=== PATIENT | female | born 1965 | race African-American/Black ===

== ENCOUNTER 2017-03-23 22:46 | Emergency (ER) | payer OTHER ==
[~2017-03-23] VITALS: Ht 157.5 cm; Wt 63.5 kg
--- NOTE | 2017-03-23 23:06 | PHYS DOC ---
Adult General Chief Complaint Chief Complaint: ABDOMINAL PAIN HPI HPI Patient is a 52 year old F who presents with left lower quadrant abdominal pain and shortness of breath for the past week. Patient states that the pain is getting worse which is a what lead her to the emergency room tonight. Patient denies any fevers. Patient is a heavy smoker. Patient denies any nausea/vomiting /diarrhea. Patient denies any dysuria. Patient complains of upper of cough and worsening shortness of breath. Review of Systems Review of Systems GEN: Denies fevers, chills, sweats HEENT: Denies blurred vision, sore throat CV: Denies chest pain RESP: Shortness of breath GI: Left lower quadrant abdominal pain NEURO: Denies confusion, dizziness MSK: Denies weakness, joint pain/swelling All other systems were reviewed and found to be within normal limits, except as documented in this note. Current Medications Current Medications Current Medications Medications (Trade) Dose Ordered Sig/Daryn Start Time Stop Time Status Last Admin Dose Admin Ceftriaxone Sodium 50 ml @ 100 mls/hr 1X ONCE 03/24/17 01:45 03/24/17 02:14 03/24/17 01:44 100 MLS/HR Info (Do NOT chart on this entry -- for MONITORING) 1 each PRN DAILY PRN 03/24/17 00:15 03/26/17 00:14 Iohexol (Omnipaque 300 Mg/ml) 75 ml 1X ONCE 03/24/17 00:15 03/24/17 00:16 DC 03/24/17 00:24 75 ML Potassium Chloride (Klor-Con) 40 meq 1X ONCE 03/24/17 00:00 03/24/17 00:01 DC 03/24/17 00:04 40 MEQ Sodium Chloride 1,000 ml @ 1,000 mls/hr 1X ONCE 03/23/17 23:30 03/24/17 00:29 DC 03/23/17 23:30 1,000 MLS/HR Allergies Allergies Allergies Coded Allergies Type Severity Reaction Last Updated Verified No Known Drug Allergies 03/23/17 No Physical Exam Physical Exam GEN.: Mild distress. Alert and oriented. HEENT: Head is normocephalic, atraumatic NECK: Supple. LUNGS: Crackles to the left lower lung field. HEART: RRR, S1, S2 present. Peripheral pulses intact ABDOMEN: Soft, mild left lower quadrant tenderness palpation, no rebound tenderness, no guarding, no abdominal distention. Positive bowel sounds. EXTREMITIES: Without any cyanosis. NEUROLOGIC: Normal speech, normal tone PSYCHIATRIC: Normal affect, normal mood. SKIN: No ulcerations Current Patient Data Vital Signs Vital Signs Date Time Temp Pulse Resp B/P (MAP) Pulse Ox O2 Delivery O2 Flow Rate FiO2 03/24/17 01:02 92 22 127/74 (91) 96 Room Air 03/23/17 23:00 98.0 98.0 Lab Values Laboratory Tests Test 03/23/17 22:55 03/23/17 23:15 Urine Collection Type Unknown Urine Color Yellow Urine Clarity Clear Urine pH 6.0 Urine Specific [place] 1.020 Urine Protein Negative mg/dL (NEG-TRACE) Urine Glucose (UA) Negative mg/dL (NEG) Urine Ketones (Stick) Negative mg/dL (NEG) Urine Blood Negative (NEG) Urine Nitrite Negative (NEG) Urine Bilirubin Negative (NEG) Urine Urobilinogen Dipstick 1.0 mg/dL (0.2 mg/dL) Urine Leukocyte Esterase Negative (NEG) Urine RBC 0 /HPF (0-2) Urine WBC Occ /HPF (0-4) Urine Squamous Epithelial Cells Many /LPF Urine Bacteria Few /HPF (0-FEW) Urine Hyaline Casts Occasional /HPF Urine Mucus Slight /LPF White Blood Count 9.9 x10^3/uL (4.0-11.0) Red Blood Count 3.36 x10^6/uL (3.50-5.40) L Hemoglobin 11.2 g/dL (12.0-15.5) L Hematocrit 33.5 % (36.0-47.0) L Mean Corpuscular Volume 100 fL (79-100) Mean Corpuscular Hemoglobin 33 pg (25-35) Mean Corpuscular Hemoglobin Concent 34 g/dL (31-37) Red Cell Distribution Width 14.6 % (11.5-14.5) H Platelet Count 444 x10^3/uL (140-400) H Neutrophils (%) (Auto) 39 % (31-73) Lymphocytes (%) (Auto) 51 % (24-48) H Monocytes (%) (Auto) 7 % (0-9) Eosinophils (%) (Auto) 2 % (0-3) Basophils (%) (Auto) 1 % (0-3) Neutrophils # (Auto) 3.9 x10^3uL (1.8-7.7) Lymphocytes # (Auto) 5.0 x10^3/uL (1.0-4.8) H Monocytes # (Auto) 0.7 x10^3/uL (0.0-1.1) Eosinophils # (Auto) 0.2 x10^3/uL (0.0-0.7) Basophils # (Auto) 0.1 x10^3/uL (0.0-0.2) Segmented Neutrophils % 37 % (35-66) Band Neutrophils % 1 % (0-9) Lymphocytes % 56 % (24-48) H Monocytes % 1 % (0-10) Eosinophils % 3 % (0-5) Basophils % 2 % (0-3) Toxic Granulation Slight Platelet Estimate Increased (ADEQUATE) Sodium Level 142 mmol/L (136-145) Potassium Level 2.9 mmol/L (3.5-5.1) *L Chloride Level 106 mmol/L (98-107) Carbon Dioxide Level 27 mmol/L (21-32) Anion Gap 9 (6-14) Blood Urea Nitrogen 13 mg/dL (7-20) Creatinine 0.9 mg/dL (0.6-1.0) Estimated GFR (Cockcroft-Gault) 65.2 BUN/Creatinine Ratio 14 (6-20) Glucose Level 104 mg/dL (70-99) H Lactic Acid Level 1.2 mmol/L (0.4-2.0) Calcium Level 8.8 mg/dL (8.5-10.1) Total Bilirubin 0.3 mg/dL (0.2-1.0) Aspartate Amino Transferase (AST) 88 U/L (15-37) H Alanine Aminotransferase (ALT) 61 U/L (14-59) H Alkaline Phosphatase 88 U/L (46-116) Troponin I Quantitative < 0.017 ng/mL (0.000-0.055) Total Protein 8.6 g/dL (6.4-8.2) H Albumin 3.0 g/dL (3.4-5.0) L Albumin/Globulin Ratio 0.5 (1.0-1.7) L Lipase 275 U/L (73-393) Ethyl Alcohol Level 256 mg/dL (0-10) H Laboratory Tests 03/23/17 23:15 Laboratory Tests 03/23/17 23:15 EKG EKG 2349: EKG shows normal sinus rhythm rate of 97 no STEMI[] Radiology/Procedures Radiology/Procedures CT scan abdomen and pelvis: IMPRESSION: Patchy infiltrates in the right lower lobe. Heterogeneous uterus with calcifications suggesting fibroids. No other focal abnormalities identified in the abdomen or pelvis. [] Course & Med Decision Making Course & Med Decision Making Pertinent Labs and Imaging studies reviewed. (See chart for details) ED course: Patient was seen and examined emergency room abdominal workup was ordered along with a CT scan abdomen pelvis, alcohol level Patient was dated on her alcohol level in which she admitted to drinking and also updated on her low potassium level and would give her oral potassium here the emergency room Updated patient on CT findings and the plan to discharge her home with oral antibiotics since she's having no signs and symptoms of sepsis or acute hypoxia from the pneumonia. Patient is comfortable being discharged home. Explained to the patient he would treat her for the hypokalemia with oral potassium and recommended short-term follow-up with PCP in 3-4 days have her potassium levels rechecked. MDM: After reviewing the chart, CC/HPI/PMH, physical exam, [lab results], [ radiological results], I do not believe the patient has intra-abdominal emergency or severe bacterial infection warranting further workup and/or admission at this time. I believe the patient is stable to be discharged home with oral antibiotics for treatment of her pneumonia. Patient had no EKG changes from her hypokalemia therefore is reasonable to give her oral potassium replacement and have her follow-up with PCP in 3-4 days to have it rechecked. Patient is stable for discharge. Recommended the patient to stop drinking. Additional verbal discharge instructions were provided to the patient and that if symptoms get worse or any new symptoms arise that are worrisome to the patient she is to return to the emergency room immediately [] Dragon Disclaimer Dragon Disclaimer This electronic medical record was generated, in whole or in part, using a voice recognition dictation system. Departure Departure Impression: Primary Impression: Pneumonia Additional Impressions: Hypokalemia Alcohol abuse Disposition: 01 HOME, SELF-CARE Condition: IMPROVED Patient Instructions: Alcohol Problems, Hypokalemia-Brief, Pneumonia, Adult Additional Instructions: Please follow-up with your family physician in the next one to 2 days and return if symptoms increase Scripts Potassium Chloride (POTASSIUM CHLORIDE) 20 Meq Tablet.er 20 MEQ PO DAILY for 5 Days, #5 TAB.SR Prov: WOOD PAZ DO 03/24/17 Azithromycin (ZITHROMAX) 250 Mg Tablet 1 PKG PO UD, #6 TAB Prov: WOOD PAZ DO 03/24/17 Problem Qualifiers WOOD PAZ DO Mar 23, 2017 23:06
[2017-03-23 23:09] LABS: BILIRUBIN,URINE NEGATIVE (NEG); GLUCOSE,URINE NEGATIVE (NEG); NITRITE,URINE NEGATIVE (NEG); PROTEIN,URINE NEGATIVE (NEG-TRACE)
[2017-03-23 23:20] LABS: RBC,URINE 0 /HPF (0-2); WBC,URINE OCC /HPF (0-4)
[2017-03-23 23:21] LABS: BACTERIA,URINE FEW /HPF (0-FEW); SQUAMOUS EPITHELIAL CELL,UR MANY /LPF
[2017-03-23 23:28] LABS: BASO # 0.1 x10^3/uL (0.0-0.2); BASO % 1 % (0-3); EOS % 2 % (0-3); HEMATOCRIT 33.5 % (36.0-47.0); HEMOGLOBIN 11.2 g/dL (12.0-15.5); LYMPH % 51 % (24-48); MEAN CORPUSCULAR HEMOGLOBIN 33 pg (25-35); MEAN CORPUSCULAR HGB CONC 34 g/dL (31-37); MEAN CORPUSCULAR VOLUME 100 fL (79-100); MONO % 7 % (0-9); NEUT % 39 % (31-73); PLATELET COUNT 444 x10^3/uL (140-400); RED BLOOD COUNT 3.36 x10^6/uL (3.50-5.40); RED CELL DISTRIBUTION WIDTH 14.6 % (11.5-14.5); WHITE BLOOD COUNT 9.9 x10^3/uL (4.0-11.0)
[2017-03-23] MEDS ORDERED: IV NORMAL SALINE 1000ML BAG 1,000 ML IV ONE (23:30)
[2017-03-23 23:47] LABS: ALBUMIN/GLOBULIN RATIO 0.5 (1.0-1.7); CALCIUM 8.8 mg/dL (8.5-10.1); CREATININE 0.9 mg/dL (0.6-1.0); GFR 65.2; TOTAL BILIRUBIN 0.3 mg/dL (0.2-1.0); TOTAL PROTEIN 8.6 g/dL (6.4-8.2)
[2017-03-23 23:52] LABS: % BASOS 2 % (0-3); % EOS 3 % (0-5)
[2017-03-23 23:54] LABS: PLT ESTIMATE INCREASED (ADEQUATE); POTASSIUM 2.9 mmol/L (3.5-5.1); TOXIC GRANULATION SLIGHT
[2017-03-24] MEDS ORDERED: POTASSIUM CHLORIDE 20 MEQ TABLET.ER. PO ONE
[2017-03-24] MEDS ORDERED: IOHEXOL 300 MG/ML 100ML VIAL. IV ONE (00:15)
[2017-03-24] MEDS ORDERED: CONTRAST GIVEN MC PRN (00:15)
[2017-03-24 01:02] VITALS: BP 127/74
--- NOTE | 2017-03-24 01:09 | RAD ---
CT abdomen and pelvis with contrast: Reason for examination: Left lower quadrant abdominal pain. Helical images were obtained through the abdomen pelvis with intravenous administration of 75 cc Omnipaque 300. Reconstruction was performed in sagittal and coronal planes. Exposure: One or more of the following individualized dose reduction techniques were utilized for this examination: 1. Automated exposure control 2. Adjustment of the mA and/or kV according to patient size 3. Use of iterative reconstruction technique. The lung bases show patchy infiltrates in the right lower lung field. No pleural effusions are seen. The heart size is normal with no pericardial effusion. No abnormality seen at the liver, gallbladder, spleen, adrenal glands or pancreas. The kidneys show no renal masses, renal calculi, hydronephrosis or evidence of obstructive uropathy. The abdominal aorta and inferior vena cava show no abnormalities. No abnormality seen at the appendix. There is no evidence of diverticulosis or diverticulitis. No abnormality seen at the bladder. Uterus shows heterogeneous density and calcification consistent with fibroids. No adnexal masses or free fluid are seen. No acute bony abnormalities are evident. IMPRESSION: Patchy infiltrates in the right lower lobe. Heterogeneous uterus with calcifications suggesting fibroids. No other focal abnormalities identified in the abdomen or pelvis. Electronically signed by: Adriana Paz MD (03/24/2017 1:05 AM) [id number]
[2017-03-24] MEDS ORDERED: AZIT250T PO (01:36)
[2017-03-24] MEDS ORDERED: POTA20TA82 PO (01:36)
--- NOTE | 2017-03-24 08:59 | EKG ---
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
== END 2017-03-24 01:59 | disposition home or self-care (01) ==
LOC: ER 22:46
DX: J18.9 Pneumonia, unspecified organism (principal); E87.6 Hypokalemia; F10.10 Alcohol abuse, uncomplicated; F17.200 Nicotine dependence, unspecified, uncomplicated
CPT/HCPCS: 36415; 74177; 80053; 81001; 83605; 83690; 84484; 85007; 85025; 87040; 93005; 96361; 96374; 99285; G0480; J0690; J7030; Q9967